=== PATIENT | male | born 1985 | race Two or more races ===

== ENCOUNTER 2022-10-04 03:59 | Emergency (ER) | payer BC ==
[~2022-10-04] VITALS: Ht 157.5 cm; Wt 58.6 kg
[2022-10-04] MEDS ORDERED: TOPUD PO (06:30)
[2022-10-04] MEDS ORDERED: NIRM1TAB PO (06:30)
[2022-10-04] MEDS ORDERED: ONDA4TAB50 PO (06:59)
[2022-10-04 07:00] VITALS: BP 105/69
[2022-10-04] MEDS ORDERED: ACETAMINOPHEN 325MG TABLET PO ONE ×2 (07:00→07:30)
[2022-10-04] MEDS ORDERED: ONDANSETRON HCL 4MG TABLET PO ONE (07:00)
[2022-10-04] MEDS ORDERED: KETOROLAC 30MG/ML VIAL IV ONE (07:00)
== END 2022-10-04 08:21 | disposition home or self-care (01) ==
LOC: ER 03:59
DX: U07.1 COVID-19 (principal)
CPT/HCPCS: 71045; 96374; 99283; J1885